=== PATIENT | male | born 1950 | race Caucasian/White ===

== ENCOUNTER 2021-10-08 11:30 | Emergency (ER) | payer MEDICARE, OTHER ==
[2021-10-08 12:05] VITALS: BP 164/90
[2021-10-08] MEDS ORDERED: SULFAMETH/TRIMETH DS 800/160 MG TABLET PO STA (13:14)
[2021-10-08] MEDS ORDERED: ceFAZolin 1 GM VIAL IM STA (13:14)
--- NOTE | 2021-10-08 13:17 | ED Physician Documentation ---
PD HPI UPPER EXT INJURY - Stated complaint Stated Complaint: LT HAND INJ - Chief complaint Chief Complaint: Laceration - History obtained from History obtained from: Patient - Additonal information Additional information: 71-year-old gentleman who is up-to-date on tetanus slammed his left hand dorsally against a hard surface in his workshop 2 days ago. Last night started developing increasing swelling redness around the site and a foul smell to the wound. No fevers or chills. He does not feel ill generally. Review of Systems Constitutional: reports: Reviewed and negative Eyes: reports: Reviewed and negative Ears: reports: Reviewed and negative Nose: reports: Reviewed and negative Throat: reports: Reviewed and negative PD PAST MEDICAL HISTORY - Present Medications Home Medications: Ambulatory Orders Medication Instructions Recorded Confirmed Sulfamethox/Trimeth 800/160 1 each PO BID #14 tablet 10/08/21 [Bactrim Ds 800/160] cephALEXin [Keflex] 500 mg PO Q6H #28 cap 10/08/21 - Allergies Allergies/Adverse Reactions: Allergies Allergy/AdvReac Type Severity Reaction Status Date / Time No Known Drug Allergies Allergy Verified 10/08/21 12:01 PD ED PE NORMAL - Vitals Vital signs reviewed: Yes - General General: Alert and oriented X 3, No acute distress - Extremities Extremities: Other (There is a macerated stellate laceration on the dorsum of the mid left hand without underlying tenderness. There is mild surrounding cellulitis and swelling. The wound has some expressible foul-smelling pus from it. He has full range of motion of the hand.) - Neuro Neuro: Alert and oriented X 3, Normal speech Results - Vitals Vitals: Vital Signs - 24 hr 10/08/21 12:02 Temperature 36.6 C Heart Rate 70 Respiratory 16 Rate Blood Pressure 164/90 H O2 Saturation 97 Oxygen O2 Source Room air PD MEDICAL DECISION MAKING - ED course ED course: He has a wound infection of the dorsum of the left hand without signs of deep space infection. Or systemic illness. A culture was taken during examination and he was given IM Ancef here as well as oral Bactrim to cover the usual pathogens. Departure - Departure Disposition: 01 Home, Self Care Clinical Impression: Laceration of hand with infection Qualifiers: Encounter type: initial encounter Laterality: left Qualified Code(s): S61.412A - Laceration without foreign body of left hand, initial encounter; L08.9 - Local infection of the skin and subcutaneous tissue, unspecified Condition: Good Record reviewed to determine appropriate education?: Yes Instructions: ED Infec Skin Cellulitis Prescriptions: Sulfamethox/Trimeth 800/160 [Bactrim Ds 800/160] 1 each PO BID #14 tablet cephALEXin [Keflex] 500 mg PO Q6H #28 cap Comments: If you develop increasing swelling, redness, or any fever please return for reev aluation. We are performing a wound culture, the results should be done in 48-72 hours. If antibiotic change is necessary we will call you. Return if worse in the meantime, especially if you develop increased pain, fevers, cannot keep down the medication. Otherwise follow-up with your physician in approximately 2-3 days.
== END 2021-10-08 13:35 | disposition home or self-care (01) ==
LOC: ED 11:30
DX: L03.114 Cellulitis of left upper limb (principal); S61.412A Laceration without foreign body of left hand, initial encounter; W22.09XA Striking against other stationary object, initial encounter; Y92.008 Other place in unspecified non-institutional (private) residence as the place of occurrence of the external cause
CPT/HCPCS: 87070; 87205; 96372; 99283; A9270; 87181